=== PATIENT | male | born 1950 | race Caucasian/White ===

== ENCOUNTER 2016-08-25 07:52 | Day surgery (SDC) | payer BC ==
[~2016-08-25 07:52] MED LIST: ceFAZolin 2 GM/DEXTROSE 100 ML IV ONE
[2016-08-25] MEDS ORDERED: CEFAZOLIN 2 GM/DEXTROSE/100 ML BAG IV ONE (08:35)
[2016-08-25] MEDS ORDERED: fentaNYL 100 MCG/2 ML INJ ONE ×2 (08:37)
[2016-08-25] MEDS ORDERED: DEXAMETHASONE 4 MG/ML VIAL ONE (08:37)
[2016-08-25] MEDS ORDERED: PROPOFOL/EMULSION 500 MG/50 ML BOTTLE IV ONE (08:37)
[2016-08-25] MEDS ORDERED: LIDOCAINE 2% 5 ML SDV ONE (08:37)
[2016-08-25] MEDS ORDERED: GLYCOPYRROLATE 0.2 MG/1 ML VIAL ONE ×2 (08:38→10:46)
[2016-08-25] MEDS ORDERED: BUPIVACAINE 0.5% 30 ML SDV ONE (08:50)
[2016-08-25] MEDS ORDERED: LR 1,000 ML IV ONE (08:57)
[2016-08-25] MEDS ORDERED: MIDAZOLAM 2 MG/2 ML VIAL ONE (09:45)
[2016-08-25] MEDS ORDERED: KETOROLAC 30 MG/1 ML SDV ONE (10:46)
[2016-08-25] MEDS ORDERED: ONDANSETRON 4 MG/2 ML VIAL ONE (10:47)
== END 2016-08-25 14:15 | disposition home or self-care (01) ==
LOC: FSGY 07:52
PROVIDERS: ATTEND Surgery
DX: K40.90 Unilateral inguinal hernia, without obstruction or gangrene, not specified as recurrent (principal); K43.9 Ventral hernia without obstruction or gangrene
CPT/HCPCS: 49560; 49568; 49650; C1727; C1781; J0690; J1100; J1885; J2250; J2405; J2704; J3010

== ENCOUNTER → 2017-11-27 | Outpatient (CLI) | payer BC | LOC: FIMAGING 10:08 | PROVIDERS: ATTEND Physician Assistant | DX: R10.32 Left lower quadrant pain (principal) ==

== ENCOUNTER → 2018-01-30 | Outpatient (CLI) | payer BC | LOC: FIMAGING 12:32 | PROVIDERS: ATTEND Physician Assistant | DX: N50.82 Scrotal pain (principal); I86.1 Scrotal varices; N43.3 Hydrocele, unspecified ==